=== PATIENT | female | born 2000 | race Caucasian/White ===

== ENCOUNTER 2022-12-08 21:02 | Emergency (ER) | payer OTHER ==
[2022-12-08 21:30] LABS: BASOPHILS # (AUTO) 0.1 10^3/uL (0.0-0.1); BASOPHILS % (AUTO) 0.5 %; EOSINOPHILS # (AUTO) 0.4 10^3/uL (0.0-0.7); EOSINOPHILS % (AUTO) 3.1 %; HCT - HEMATOCRIT 39.8 % (37.0-47.0); LYMPHOCYTES # (AUTO) 4.9 10^3/uL (1.5-3.5); LYMPHOCYTES % (AUTO) 40.4 %; MEAN CORPUSCULAR HEMOGLOBIN 27.5 pg (27.0-31.0); MEAN CORPUSCULAR HGB CONC 32.7 g/dL (32.0-36.0); MEAN CORPUSCULAR VOLUME 84.3 fL (81.0-99.0); MEAN PLATELET VOLUME 10.6 fL (7.9-10.8); MONOCYTES # (AUTO) 0.9 10^3/uL (0.0-1.0); MONOCYTES % (AUTO) 7.7 %; NEUTROPHILS # (AUTO) 5.8 10^3/uL (1.5-6.6); NEUTROPHILS % (AUTO) 48.1 %; PLT - PLATELET COUNT 264 10^3/uL (130-450); RED BLOOD COUNT 4.72 10^6/uL (4.20-5.40); RED CELL DISTRIBUTION WIDTH 12.7 % (12.0-15.0); WHITE BLOOD COUNT 12.1 x10^3/uL (4.8-10.8)
[2022-12-08 21:37] LABS: BILIRUBIN,URINE NEGATIVE (NEGATIVE); GLUCOSE, URINE (UA) NEGATIVE (NEGATIVE); KETONES,URINE (UA) NEGATIVE (NEGATIVE); LEUKOCYTE ESTERASE, URINE NEGATIVE (NEGATIVE); NITRITE,URINE NEGATIVE (NEGATIVE); OCCULT BLOOD,URINE NEGATIVE (NEGATIVE); PROTEIN,URINE NEGATIVE (NEGATIVE); UROBILINOGEN,URINE 0.2 (NORMAL) E.U./dL (NORMAL)
[2022-12-08 21:39] LABS: CLARITY,URINE CLEAR (CLEAR)
[2022-12-08 21:40] LABS: HCG UR QUAL NEGATIVE
[2022-12-08 21:44] LABS: ALBUMIN 4.3 g/dL (3.2-5.5); ALBUMIN/GLOBULIN RATIO 1.1 (1.0-2.2); BILIRUBIN,TOTAL 0.4 mg/dL (0.2-1.0); CALCIUM 9.2 mg/dL (8.5-10.3); CREATININE 0.8 mg/dL (0.4-1.0); POTASSIUM 3.3 mmol/L (3.5-5.0); TOTAL PROTEIN 8.1 g/dL (6.7-8.2)
[2022-12-08] MEDS ORDERED: ONDANSETRON ODT 4 MG TABLET TL STA (21:49)
[2022-12-08 22:21] LABS: THYROID STIMULATING HORMONE 2.88 uIU/mL (0.34-5.60)
[2022-12-08] MEDS ORDERED: ONDANSETRON ODT 4 MG Prepack 2 TL PRN (23:09)
--- NOTE | 2022-12-08 23:13 | ED Physician Documentation ---
History of Present Illness - Stated complaint Stated Complaint: N/V,WEAKNESS - Chief complaint Chief Complaint: Abd Pain - History obtained from History obtained from: Patient - Additonal information Additional information: The patient comes to the emergency department chief complaint of nausea for a week. She is also been feeling extra tired and has had some vomiting. She states she took a couple tests at home and they were both negative but that she still has a suspicion that she may be . She denies any diarrhea. No respiratory symptoms. No fever or chills. She has not otherwise felt ill. No other complaints at this time. PD PAST MEDICAL HISTORY - Present Medications Home Medications: Ambulatory Orders Medication Instructions Recorded Confirmed Ondansetron Odt [Zofran] 4 mg TL Q6H PRN #10 tablet 12/08/22 - Allergies Allergies/Adverse Reactions: Allergies Allergy/AdvReac Type Severity Reaction Status Date / Time No Known Drug Allergies Allergy Verified 12/08/22 21:06 PD ED PE NORMAL - Vitals Vital signs reviewed: Yes - General General: Alert and oriented X 3, No acute distress, Well developed/nourished - HEENT HEENT: Atraumatic, PERRL, EOMI, Moist mucous membranes - Neck Neck: Supple, no meningeal sign - Cardiac Cardiac: RRR, No murmur - Respiratory Respiratory: No respiratory distress, Clear bilaterally - Abdomen Abdomen: Soft, Non tender, Non distended - Derm Derm: Normal color, Warm and dry, No rash - Extremities Extremities: No deformity, No edema, No calf tenderness / cord - Neuro Neuro: Alert and oriented X 3 - Psych Psych: Normal mood, Normal affect Results - Labs Labs: Laboratory Tests 12/08/22 12/08/22 12/08/22 21:24 21:24 21:24 WBC 12.1 H RBC 4.72 Hgb 13.0 Hct 39.8 MCV 84.3 MCH 27.5 MCHC 32.7 RDW 12.7 Plt Count 264 MPV 10.6 Neut # (Auto) 5.8 Lymph # (Auto) 4.9 H [place] # (Auto) 0.9 Eos # (Auto) 0.4 Baso # (Auto) 0.1 Absolute Nucleated RBC 0.00 Nucleated RBC % 0.0 Sodium 138 Potassium 3.3 L Chloride 106 Carbon Dioxide 25 Anion Gap 7.0 BUN 19 Creatinine 0.8 Estimated GFR (MDRD) 89 Glucose 93 Calcium 9.2 Total Bilirubin 0.4 AST 24 ALT 21 Alkaline Phosphatase 64 Total Protein 8.1 Albumin 4.3 Globulin 3.8 Albumin/Globulin Ratio 1.1 Lipase 31 TSH Beta HCG, Quant Urine Color YELLOW Urine Clarity CLEAR Urine pH 5.0 Ur Specific [place] >=1.030 H Urine Protein NEGATIVE Urine Glucose (UA) NEGATIVE Urine Ketones NEGATIVE Urine Occult Blood NEGATIVE Urine Nitrite NEGATIVE Urine Bilirubin NEGATIVE Urine Urobilinogen 0.2 (NORMAL) Ur Leukocyte Esterase NEGATIVE Ur Microscopic Review NOT INDICATED Urine Culture Comments NOT INDICATED Urine HCG, Qual 12/08/22 12/08/22 21:24 21:24 WBC RBC Hgb Hct MCV MCH MCHC RDW Plt Count MPV Neut # (Auto) Lymph # (Auto) [place] # (Auto) Eos # (Auto) Baso # (Auto) Absolute Nucleated RBC Nucleated RBC % Sodium Potassium Chloride Carbon Dioxide Anion Gap BUN Creatinine Estimated GFR (MDRD) Glucose Calcium Total Bilirubin AST ALT Alkaline Phosphatase Total Protein Albumin Globulin Albumin/Globulin Ratio Lipase TSH 2.88 Beta HCG, Quant < 0.6 Urine Color Urine Clarity Urine pH Ur Specific [place] Urine Protein Urine Glucose (UA) Urine Ketones Urine Occult Blood Urine Nitrite Urine Bilirubin Urine Urobilinogen Ur Leukocyte Esterase Ur Microscopic Review Urine Culture Comments Urine HCG, Qual NEGATIVE PD Medical Decision Making - ED course Complexity details: reviewed results, re-evaluated patient, considered differential, d/w patient, d/w family ED course: The patient was worked up with laboratory studies, urinalysis, and test. Her work-up was unremarkable and test was negative. She was treated symptomatically with IV fluids and Zofran was found to be feeling better. We have discussed symptomatic management at home and the usual indications for return. Departure - Departure Disposition: 01 Home, Self Care Clinical Impression: Vomiting Qualifiers: Vomiting type: bilious vomiting Nausea presence: with nausea Qualified Code(s): R11.14 - Bilious vomiting Condition: Stable Instructions: ED Diet Vomiting Diarrhea Prescriptions: Ondansetron Odt [Zofran] 4 mg TL Q6H PRN #10 tablet PRN Reason: Nausea / Vomiting Comments: Your labs overall look good. You are completely negative for any hormones, and so you are definitely not . Your liver enzymes are completely normal and there is no evidence at this point in time of a blocked gallbladder. You may have gallstones, though your symptoms are very atypical for this, so there is no indication for emergent imaging tonight. However, you may talk to your primary doctor through [facility] about getting an ultrasound done to see if you do have any underlying gallbladder issues. The other test that may be helpful in follow-up would be endoscopy, where a camera is put down to take a direct look at your esophagus and stomach. This can sometimes help determine why there is ongoing stomach upset, especially if it is related to GERD or developing ulcer. This is also something that your primary doctor can refer you for. We did check your thyroid to make sure that that was functioning normally and it did come back completely normal. The only thing that showed up on your testing was that your urine was very concentrated, indicating that you probably need to drink more fluids, even though you feel like you are drinking enough. Especially when you are vomiting, you should be drinking about 8 to 10 cups of water per day, or 64 to 80 ounces. Additionally, has been quite warm lately and you may be losing more fluid than you are aware of. At this point in time, we will let you go home. We have given you a prepack for some nausea medicine and a prescription for the same. Please make an appointment to follow- up with your primary doctor if you are not feeling better by the end of the week. Forms: PCP List Discharge Date/Time: 12/08/22 23:35
[2022-12-08 23:47] VITALS: BP 116/73; O2SAT 97
== END 2022-12-08 23:35 | disposition home or self-care (01) ==
LOC: ED 21:02
DX: R11.14 Bilious vomiting (principal)
CPT/HCPCS: 36415; 80053; 81003; 81025; 83690; 84443; 84702; 85025; 99283; Q0162; 81001; 87086

== ENCOUNTER 2023-08-04 10:00 | Outpatient (CLI) | payer OTHER ==
[2023-08-04 20:17] LABS: BACTERIAL VAGINOSIS DNA NEGATIVE (NEGATIVE); CANDIDA GLABRATA DNA NEGATIVE (NEGATIVE); CANDIDA GROUP DNA NEGATIVE (NEGATIVE); CANDIDA KRUSEI DNA NEGATIVE (NEGATIVE); TRICHOMONAS VAGINALIS DNA NEGATIVE (NEGATIVE)
== END 2023-08-04 10:15 | disposition home or self-care (01) ==
LOC: LAB.N 10:00
PROVIDERS: ATTEND Physician Assistant Medical
DX: R30.0 Dysuria (principal)
CPT/HCPCS: 81514; 87086

== ENCOUNTER 2023-10-20 08:11 | Emergency (ER) | payer OTHER ==
[2023-10-20 09:36] LABS: BASOPHILS # (AUTO) 0.1 10^3/uL (0.0-0.1); BASOPHILS % (AUTO) 0.3 %; EOSINOPHILS % (AUTO) 0.1 %; HCT - HEMATOCRIT 45.1 % (37.0-47.0); HGB - HEMOGLOBIN 14.6 g/dL (12.0-16.0); LYMPHOCYTES # (AUTO) 0.8 10^3/uL (1.5-3.5); LYMPHOCYTES % (AUTO) 4.8 %; MEAN CORPUSCULAR HEMOGLOBIN 26.9 pg (27.0-31.0); MEAN CORPUSCULAR HGB CONC 32.4 g/dL (32.0-36.0); MEAN CORPUSCULAR VOLUME 83.2 fL (81.0-99.0); MEAN PLATELET VOLUME 11.1 fL (7.9-10.8); MONOCYTES # (AUTO) 0.7 10^3/uL (0.0-1.0); NEUTROPHILS # (AUTO) 14.8 10^3/uL (1.5-6.6); NEUTROPHILS % (AUTO) 90.5 %; PLT - PLATELET COUNT 249 10^3/uL (130-450); RED BLOOD COUNT 5.42 10^6/uL (4.20-5.40); RED CELL DISTRIBUTION WIDTH 12.6 % (12.0-15.0); WHITE BLOOD COUNT 16.4 x10^3/uL (4.8-10.8)
[2023-10-20 09:49] LABS: ALBUMIN 4.3 g/dL (3.2-5.5); ALBUMIN/GLOBULIN RATIO 1.5 (1.0-2.2); BILIRUBIN,TOTAL 0.8 mg/dL (0.2-1.0); CALCIUM 9.5 mg/dL (8.5-10.3); CREATININE 0.7 mg/dL (0.6-1.3); POTASSIUM 3.9 mmol/L (3.5-4.5); TOTAL PROTEIN 7.2 g/dL (6.4-8.9)
--- NOTE | 2023-10-20 10:28 | ED Physician Documentation ---
PD HPI NVD - Stated complaint Stated Complaint: NAUSEA,SOA - Chief complaint Chief Complaint: Abd Pain - History obtained from History obtained from: Patient - History of Present Illness Timing - onset: Last night Timing - duration: Hours (10-12 hours) Timing - details: Gradual onset, Still present Associated symptoms: Abdominal pain, Dizzy, Loss of appetite. No: Fever, Melena Contributing factors: No: Sick contact, Bad food, Alcohol use Similar symptoms before: No diagnosis (had similar few months ago without diagnosis, lasted just a day or so.), Has not had sx before Review of Systems Constitutional: reports: Myalgias. denies: Fever, Chills PD PAST MEDICAL HISTORY - Past Medical History Past Medical History: Yes Cardiovascular: None Respiratory: Asthma Neuro: None Endocrine/Autoimmune: None GI: GERD [employer]: None : None, Chronic bladder infection HEENT: None Psych: Anxiety Derm: None - Past Surgical History Past Surgical History: Yes General: EGD - Present Medications Home Medications: Ambulatory Orders Medication Instructions Recorded Confirmed Ondansetron Odt [Zofran] 4 mg TL Q6H PRN #10 tablet 12/08/22 10/20/23 Amox/Clav 875/125 [Augmentin] 1 each PO Q12H #14 tablet 10/20/23 FLUoxetine [PROzac] 10 mg PO DAILY 10/20/23 10/20/23 Meloxicam [Mobic] 7.5 mg PO BID 10 Days #20 tablet 10/20/23 Ondansetron Odt [Zofran] 4 mg TL Q6H PRN #15 tablet 10/20/23 Oxycodone HCl/Acetaminophen 1 each PO Q6H PRN #20 tablet 10/20/23 [Percocet 5-325 mg Tablet] Pantoprazole [Protonix] 40 mg PO DAILY 10/20/23 10/20/23 - Allergies Allergies/Adverse Reactions: Allergies Allergy/AdvReac Type Severity Reaction Status Date / Time No Known Drug Allergies Allergy Verified 10/20/23 08:28 - Social History Does the pt smoke?: No Smoking Status: Never smoker Does the pt drink ETOH?: Yes ETOH Use: Wine Does the pt have substance abuse?: No - Immunizations Immunizations are current?: Yes - POLST Patient has POLST: No PD ED PE NORMAL - Vitals Vital signs reviewed: Yes - General General: Alert and oriented X 3, Well developed/nourished, Other (appears uncomfortable with emesis bag. ) - Neck Neck: Supple, no meningeal sign, No adenopathy - Cardiac Cardiac: No murmur. No: RRR (tachycardic but regular.) - Respiratory Respiratory: Clear bilaterally - Abdomen Abdomen: Normal bowel sounds, Soft, Non distended, No organomegaly, Other (very tender RLQ with local guarding and percussion tedner. ) Results - Vitals Vitals: Oxygen O2 Source Room air - Labs Labs: Laboratory Tests 10/20/23 10/20/23 10/20/23 09:29 09:29 09:29 WBC 16.4 H RBC 5.42 H Hgb 14.6 Hct 45.1 MCV 83.2 MCH 26.9 L MCHC 32.4 RDW 12.6 Plt Count 249 MPV 11.1 H Neut # (Auto) 14.8 H Lymph # (Auto) 0.8 L [place] # (Auto) 0.7 Eos # (Auto) 0.0 Baso # (Auto) 0.1 Absolute Nucleated RBC 0.00 Nucleated RBC % 0.0 Sodium 135 Potassium 3.9 Chloride 105 Carbon Dioxide 22 Anion Gap 8.0 BUN 22 H Creatinine 0.7 Estimated GFR (MDRD) 103 Glucose 123 H Calcium 9.5 Total Bilirubin 0.8 AST 15 ALT 18 Alkaline Phosphatase 71 Total Protein 7.2 Albumin 4.3 Globulin 2.9 Albumin/Globulin Ratio 1.5 Lipase 13 Serum HCG, Qual NEGATIVE Urine Color Urine Clarity Urine pH Ur Specific [place] Urine Protein Urine Glucose (UA) Urine Ketones Urine Occult Blood Urine Nitrite Urine Bilirubin Urine Urobilinogen Ur Leukocyte Esterase Ur Microscopic Review Urine Culture Comments 10/20/23 12:55 WBC RBC Hgb Hct MCV MCH MCHC RDW Plt Count MPV Neut # (Auto) Lymph # (Auto) [place] # (Auto) Eos # (Auto) Baso # (Auto) Absolute Nucleated RBC Nucleated RBC % Sodium Potassium Chloride Carbon Dioxide Anion Gap BUN Creatinine Estimated GFR (MDRD) Glucose Calcium Total Bilirubin AST ALT Alkaline Phosphatase Total Protein Albumin Globulin Albumin/Globulin Ratio Lipase Serum HCG, Qual Urine Color YELLOW Urine Clarity CLEAR Urine pH 5.0 Ur Specific [place] 1.010 Urine Protein NEGATIVE Urine Glucose (UA) NEGATIVE Urine Ketones 15 H Urine Occult Blood NEGATIVE Urine Nitrite NEGATIVE Urine Bilirubin NEGATIVE Urine Urobilinogen 0.2 (NORMAL) Ur Leukocyte Esterase NEGATIVE Ur Microscopic Review NOT INDICATED Urine Culture Comments NOT INDICATED - Rads (name of study) abd/pelvic CT Relevant Findings:: Prelim report reviewed (normal appendix. Terminal ileum with inflammation and swelling. SI joints with inflammation. Concerning for Immune process such as IBD/Crohns. ), EMP independent interpretation of test PD Medical Decision Making - ED course Complexity details: reviewed results (Concern for appendicitis, given timreframe and location of pain. Got CT scan which shows normal appendix but terminal ileitis. ), re-evaluated patient (improved pain and nausea with IV gfluids and meds. ), considered differential (onset abd cramping/pain along with N/V last evening, continued into today. ), d/w patient Departure - Departure Disposition: 01 Home, Self Care Clinical Impression: Right lower quadrant abdominal pain, Ileitis, terminal Condition: Stable Record reviewed to determine appropriate education?: Yes Instructions: ED Colitis Ulcerative Prescriptions: Amox/Clav 875/125 [Augmentin] 1 each PO Q12H #14 tablet Meloxicam [Mobic] 7.5 mg PO BID 10 Days #20 tablet Oxycodone HCl/Acetaminophen [Percocet 5-325 mg Tablet] 1 each PO Q6H PRN #20 tablet PRN Reason: pain Ondansetron Odt [Zofran] 4 mg TL Q6H PRN #15 tablet PRN Reason: Nausea / Vomiting Comments: On CT scan, your appendix appears normal per report of the radiologist. I do see a reasonable amount of inflammation at the end part of the small intestine called the ileum. This is a uncommon area to get inflamed without some underlying irritation or inflammation. Consideration would be some underlying autoimmune process such as ulcerative colitis or Crohn's disease. At the moment we will treat the infection and inflammation part with the anti- inflammatories, antibiotic, antinauseants and medication for pain. I sent prescriptions for these to [facility]. Subsequently however follow-up with your field attendant regarding any further workup or evaluation that might include a colonoscopy. I would anticipate improvement in your symptoms over the next 2 to 3 days and resolution by 3 to 5 days. Recheck if not improving well in that timeframe return if worse despite medication. Forms: PCP List, Activity restrictions Discharge Date/Time: 10/20/23 17:03
[2023-10-20] MEDS: KETOROLAC 15 MG/ML VIAL IVP STA (10:57)
[2023-10-20] MEDS: ONDANSETRON 4 MG/2 ML VIAL IVP STA ×2 (10:57→13:38)
[2023-10-20] MEDS: SODIUM CHLORIDE 0.9% 1,000 ML IV STA (10:57)
[2023-10-20] MEDS: HYDROmorphone 1 MG/ML CARPUJECT IVP STA ×2 (10:57→12:43)
[2023-10-20 11:07] LABS: HCG,QUALITATIVE BLOOD NEGATIVE
[2023-10-20] MEDS ORDERED: iohexoL-300 100 ML VIAL ONE (11:20)
--- NOTE | 2023-10-20 12:28 | CT Report ---
PROCEDURE: Abdomen/Pelvis W INDICATIONS: RLQ pain concerning appendicitis CONTRAST: Omni 300 100ml TECHNIQUE: After the administration of intravenous contrast, a CT scan of the abdomen and pelvis was performed. Images were recorded and evaluated at appropriate window settings. Reformats: coronal and sagittal. F or radiation dose reduction, the following was used: automated exposure control, adjustment of mA and /or kV according to patient size. COMPARISON: None. FINDINGS: Image quality: Diagnostic. Lower chest: Unremarkable. Liver: No solid mass. Gallbladder: No radiopaque stones or wall thickening. Biliary tree: No intrahepatic or extrahepatic dilation, accounting for age. Spleen: No splenomegaly. Pancreas: No pancreatic ductal dilation. Adrenals: No adrenal nodule. Kidneys and ureters: No hydronephrosis. No renal cystic lesion which requires follow up. No solid mas s. Stomach, bowel and peritoneum: Abnormal wall thickening of the terminal ileum, without luminal narrow ing or upstream dilation. Normal appendix. No pathologic free fluid. No diverticular disease. Lymph nodes: No central or retroperitoneal adenopathy. Vessels: No infrarenal aortic aneurysm. Patent portal vein. PELVIS Reproductive organs: Unremarkable. Bladder: No abnormal wall thickening, accounting for underdistention. Pelvic lymph nodes: No pelvic adenopathy by size criteria. Bones: No aggressive osseous abnormality. Mild sclerosis about the sacroiliac joints. Other: No significant ventral or inguinal hernia. IMPRESSION: Terminal ileitis and mild sclerosis about the sacroiliac joints. Findings are concerning for acute in flammatory bowel disease, probably Crohn's. Normal appendix. Reviewed by: Jamar Sanchez MD on 10/20/2023 12:27 PM PDT Approved by: Jamar Sanchez MD on 10/20/2023 12:27 PM PDT Station ID: [id number]
[2023-10-20] MEDS: iohexoL-300 100 ML VIAL IVP ONE (12:43)
[2023-10-20] MEDS: PIPERACILLIN/TAZOBACTAM 3.375 GM in SODIUM CHLORIDE 0.9% MINIBAG 100 ML IV STA (12:50)
[2023-10-20 13:05] LABS: BILIRUBIN,URINE NEGATIVE (NEGATIVE); GLUCOSE, URINE (UA) NEGATIVE (NEGATIVE); KETONES,URINE (UA) 15 mg/dL (NEGATIVE); LEUKOCYTE ESTERASE, URINE NEGATIVE (NEGATIVE); NITRITE,URINE NEGATIVE (NEGATIVE); OCCULT BLOOD,URINE NEGATIVE (NEGATIVE); PROTEIN,URINE NEGATIVE (NEGATIVE); UROBILINOGEN,URINE 0.2 (NORMAL) E.U./dL (NORMAL)
[2023-10-20 13:06] LABS: CLARITY,URINE CLEAR (CLEAR)
[2023-10-20] MEDS: DROPERIDOL 5 MG/2 ML VIAL IVP STA (14:16)
[2023-10-20 17:10] VITALS: BP 118/68; O2SAT 100
== END 2023-10-20 17:03 | disposition home or self-care (01) ==
LOC: ED 08:11
DX: K50.00 Crohn's disease of small intestine without complications (principal)
CPT/HCPCS: 36415; 74177; 80053; 81003; 83690; 84703; 85025; 96365; 96375; 96376; 99284; 99285; J1170; Q9967; 81001; 87086